=== PATIENT | male | born 1970 | race Caucasian/White ===

== ENCOUNTER 2017-12-15 16:04 | Emergency (ER) | payer OTHER ==
[2017-12-15] MEDS ORDERED: HYDROMORPHONE HCL INJ/PF 2 MG/ML AMPULE IV ONE ×3 (16:19→22:40)
[2017-12-15] MEDS ORDERED: NORMAL SALINE 1000 ML 1,000 ML IV ONE (16:20)
[2017-12-15] MEDS ORDERED: CLINDAMYCIN 600 MG/D5W RTU 600 MG/50 ML RTUPB IV PRN (16:27)
--- NOTE | 2017-12-15 16:27 | ER Document Report ---
ED General - General Chief Complaint: Finger Injury Stated Complaint: RIGHT HAND INJURY Time Seen by Provider: 12/15/17 16:18 Mode of Arrival: Ambulatory Information source: Patient TRAVEL OUTSIDE OF THE [place] IN LAST 30 DAYS: No - HPI Patient complains to provider of: cut left fingers Onset: Just prior to arrival Onset/Duration: Sudden Associated symptoms: None Exacerbated by: Denies Relieved by: Denies Similar symptoms previously: No Recently seen / treated by doctor: No Notes: Pt. was holding a piece of guardrail. he stated he did not have a goo solution strategist on it and he dropped it, slamming it against a trailer and cutting off the tip of his left middle finger and injuring the left index finger. Denies medical problems. Tetanus UTD. No other injuries. - Related Data Allergies/Adverse Reactions: Penicillins Allergy (Verified 12/15/17 16:06) Past Medical History - General Information source: Patient - Social History Smoking Status: Current Every Day Smoker Frequency of alcohol use: Social Drug Abuse: None Lives with: Family Family History: Reviewed & Not Pertinent Patient has suicidal ideation: No Patient has homicidal ideation: No - Past Medical History Cardiac Medical History: Reports: None Pulmonary Medical History: Reports: None EENT Medical History: Reports: None Neurological Medical History: Reports: None Endocrine Medical History: Reports: None Renal/ Medical History: Reports: None Malignancy Medical History: Reports None GI Medical History: Reports: None Musculoskeltal Medical History: Reports None Skin Medical History: Reports None Psychiatric Medical History: Reports: None Past Surgical History: Reports: None - Immunizations Hx Diphtheria, Pertussis, Tetanus Vaccination: Yes Review of Systems - Review of Systems Constitutional: No symptoms reported Cardiovascular: No symptoms reported Respiratory: No symptoms reported Gastrointestinal: No symptoms reported Genitourinary: No symptoms reported Male Genitourinary: No symptoms reported Musculoskeletal: See HPI Skin: See HPI Hematologic/Lymphatic: No symptoms reported Neurological/Psychological: No symptoms reported Physical Exam - Vital signs Vitals: Temp Pulse Resp BP Pulse Ox 97.7 F 71 22 H 126/78 H 97 12/15/17 16:11 12/15/17 16:11 12/15/17 16:11 12/15/17 16:11 12/15/17 16:11 - Notes Notes: PHYSICAL EXAMINATION: GENERAL: Well-appearing, well-nourished and in mild distress secondary to pain HEAD: Atraumatic, normocephalic. EYES: Pupils equal round and reactive to light, extraocular movements intact, sclera anicteric, conjunctiva are normal. ENT: Nares patent, oropharynx clear without exudates. Moist mucous membranes. NECK: Normal range of motion, supple without lymphadenopathy LUNGS: Breath sounds clear to auscultation bilaterally and equal. No wheezes rales or rhonchi. HEART: Regular rate and rhythm without murmurs ABDOMEN: Soft, nontender, nondistended abdomen. No guarding, no rebound. No masses appreciated. Musculoskeletal: Patient's left hand has an amputation at the index finger distal to the DIP joint. The entire nail has been removed along with portion of the proximal small phalanx. Since the left index finger tip is also partially amputated. The nail is dislodged but present. There is no other injury. NEUROLOGICAL: Cranial nerves grossly intact. Normal speech, normal gait. Normal sensory with the exception no sensation to the tip of the index finger, motor exams WNL. PSYCH: Normal mood, normal affect. SKIN: Warm, Dry, normal turgor, no rashes or lesions noted. Course - Re-evaluation Re-evalutation: 12/15/17 16:[address] Rodriguez. He states transfer to hand surgeon. 12/15/17 17:08 Called [facility]. Called [facility]-told to call [facility]. Did call [facility] has spoke to Dr. Vaughan the orthopedic doctor he states he will accept ED to ED transfer. He did state that if there is any chance of reimplantation that I was to call [facility] because [facility] does not do that. I did call [facility] awaiting callback from Dr. Griffith. 12/15/17 17:10 12/15/17 17:33 Patient stated he like to go to [facility] - [place], [place]. I had called them however they do not have hand surgery they referred me to [facility] or [facility] 12/15/17 17:49 Hand X-Ray 12/15/17 16:18 IMPRESSION: Comminuted fracture involving the distal end of the distal phalanx of the 2nd digit. Amputation of the 3rd digit at the level of the distal end of the distal phalanx of the 3rd digit. No other evidence for fracture is seen [facility] [place], Berkley Vaughn, returned my call to state they are on critical overload and cannot accept patient. I called [facility] back , spoke with Demar at transfer center who connected me to in the ED and he has accepted. She no like she was dying an hour ago he was requested to usually about 20 minutes later initial I have no idea 12/15/17 18:14 Patient refused transfer via ambulance he stated he wanted to drive himself. I did call [facility] back to the transfer center to notify him of this. He stated that the patient could do that but then they will be triaged like any other patient coming in from the street. I did leave this information to the patient. He stated if "I can have a Mountain Dew", I will take the ambulance ride. I told him we can have any Mountain Dew but his friend would be able to go get one in the waiting room and given to him. Patient agreed. Demar was notified. Patient will be transferred to ED to ED via ambulance. The assistant corporate secretary did call [facility] to have them arrange transport. - Vital Signs Vital signs: Temp Pulse Resp BP Pulse Ox 98.0 F 88 14 127/95 H 97 12/15/17 18:00 12/15/17 18:00 12/15/17 18:00 12/15/17 18:00 12/15/17 18:00 Critical Care Note - Critical Care Note Total time excluding time spent on procedures (mins): 45 Comments: 45 minutes of critical care time spent in direct contact evaluating and reevaluating the patient, treating symptoms, reviewing labs and studies and speaking with family and consultants excluding any procedures Discharge - Discharge Clinical Impression: Finger amputation, traumatic Condition: Good Disposition: [place]
--- NOTE | 2017-12-15 16:52 | RADIOLOGY REPORT (SQ) ---
EXAM DESCRIPTION: HAND LEFT 3 VIEWS COMPLETED DATE/TIME: 12/15/2017 4:38 pm REASON FOR STUDY: amp finger COMPARISON: None. EXAM PARAMETERS: NUMBER OF VIEWS: Three views. TECHNIQUE: AP, lateral and oblique radiographic images acquired of the left hand. LIMITATIONS: None. FINDINGS: MINERALIZATION: Normal. BONES: There is a comminuted fracture involving the distal end of the distal phalanx of the 2nd digit . There is amputation of the distal 3rd digit at the level of the distal end of the distal phalanx o f the 3rd digit. No other evidence for fracture is seen. JOINTS: No effusions. SOFT TISSUES: There is associated soft tissue injury at the level of the 2nd and 3rd digits. OTHER: No other significant finding. IMPRESSION: Comminuted fracture involving the distal end of the distal phalanx of the 2nd digit. Am putation of the 3rd digit at the level of the distal end of the distal phalanx of the 3rd digit. No other evidence for fracture is seen TECHNICAL DOCUMENTATION: JOB ID: [id number] [employer]- All Rights Reserved
[2017-12-15] MEDS ORDERED: HYDROMORPHONE HCL INJ/PF 2 MG/ML AMPULE ONE (22:44)
--- NOTE | 2017-12-15 22:45 | ER Document Report ---
Doctor's Note Notes: 12/15/17 22:44 Pt. stable. Transport here to take patient to [facility].
[2017-12-15 22:56] VITALS: BP 150/90
== END 2017-12-15 22:50 | disposition short-term general hospital (02) ==
LOC: ER 16:04
DX: S62.631A Displaced fracture of distal phalanx of left index finger, initial encounter for closed fracture (principal); S68.123A Partial traumatic metacarpophalangeal amputation of left middle finger, initial encounter; W20.8XXA Other cause of strike by thrown, projected or falling object, initial encounter; Y99.0 Civilian activity done for income or pay
CPT/HCPCS: 96376; 99285; 96375; 96365; 73130; J1170; J7030